=== PATIENT | male | born 1955 | race Caucasian/White ===

== ENCOUNTER → 2020-01-26 | Outpatient (CLI) | payer SELFPAY ==
--- NOTE | 2020-01-26 16:19 | Diagnostic Imaging Report ---
INDICATION: Left knee pain. TECHNIQUE: AP, oblique, and lateral views of the left knee were obtained. FINDINGS: No fracture or acute bony abnormality is seen. There is mild patellofemoral spurring and joint space narrowing. There is mild to moderate medial joint space narrowing with osteophyte formation. There are small calcifications overlying the lateral joint space which could represent loose bodies. IMPRESSION: Degenerative findings in the left knee as described above with possible loose bodies in the lateral joint space. No overt joint effusion or acute abnormality. Dictated by: Dictated on workstation # [id number]
== END ==
LOC: RAD FS 15:19
PROVIDERS: ATTEND Nurse Practitioner Family
DX: M17.12 Unilateral primary osteoarthritis, left knee (principal)
CPT/HCPCS: 73562